=== PATIENT | female | born 1930 | race Caucasian/White ===

== ENCOUNTER → 2017-08-07 | Outpatient (REF) | payer MEDICARE ==
[2017-08-07 18:50] LABS: C REACTIVE PROTEIN QUANTITATIV 0.46 MG/DL (0.00-0.30)
== END ==
LOC: M LAB REF 17:32
DX: M19.90 Unspecified osteoarthritis, unspecified site (principal)
CPT/HCPCS: 86140

== ENCOUNTER 2018-12-23 11:16 | Emergency (ER) | payer MEDICARE ==
[~2018-12-23] VITALS: Ht 149.9 cm; Wt 63.4 kg
[~2018-12-23 11:16] MED LIST: AMLO5TAB6 PO; ASPI81TA85 PO; ATEN25TA PO; B12-1CHW PO; HYDR-2541 PO; HYDR-643 PO; LANTINJ4 SC; LESC80TA PO; LORA0.5T11 PO; NITR4TASL SL; PLAV1TAB2 PO; RAMI1CAP26 PO; SERT-141 PO; VITA-182 PO
[2018-12-23] MEDS ORDERED: FLUV80TA PO (11:33)
[2018-12-23] MEDS ORDERED: amLODIPine 5 MG TAB PO ONE (12:00)
[2018-12-23 12:45] LABS: BASO % 0.3 % (0.0-1.0); EOS # 0.1 10^3/uL (0.0-0.5); EOS % 0.9 % (0.0-3.0); HEMATOCRIT 41.9 % (36.0-47.0); HEMOGLOBIN 13.7 g/dl (12.0-15.5); LYMPH # 2.3 10^3/uL (1.5-5.0); LYMPH % 29.5 % (24.0-44.0); MEAN CORPUSCULAR HEMOGLOBIN 28.2 pg (27.0-33.0); MEAN CORPUSCULAR HGB CONC 32.7 g/dl (32.0-36.5); MEAN CORPUSCULAR VOLUME 86.2 fl (80.0-96.0); MONO # 0.8 10^3/uL (0.0-0.8); MONO % 10.9 % (0.0-5.0); NEUTROPHILS # 4.5 10^3/uL (1.5-8.5); PLATELET COUNT, AUTOMATED 326 10^3/uL (150-450); RED BLOOD COUNT 4.86 10^6/uL (4.00-5.40); WHITE BLOOD COUNT 7.7 10^3/uL (4.0-10.0)
--- NOTE | 2018-12-23 12:55 | REP ---
Portable chest, 12:13 p.m., single AP view with the patient sitting: Comparison is 01/26/2014. The lung pinedo are clear. The cardiac size is normal. The tae, mediastinum, and skeletal structures are unremarkable. Impression: Negative portable chest. There is no interval change. Electronically Signed by Bandar Lock MD 12/23/2018 12:46 P
[2018-12-23 13:27] LABS: ALBUMIN 3.5 GM/DL (3.2-5.2); ALT/SGPT 24 U/L (12-78); BILIRUBIN,DIRECT 0.2 MG/DL (0.0-0.2); BILIRUBIN,TOTAL 0.8 MG/DL (0.2-1.0); BLOOD UREA NITROGEN 17 MG/DL (7-18); CALCIUM LEVEL 9.3 MG/DL (8.8-10.2); CARBON DIOXIDE LEVEL 27 MEQ/L (21-32); CHLORIDE LEVEL 104 MEQ/L (98-107); CK-MB VALUE MASS < 1.0 NG/ML (<3.6); CPK CREATINE PHOSPHOKINASE 48 U/L (26-192); CREATININE FOR GFR 0.94 MG/DL (0.55-1.30); GLOMERULAR FILTRATION RATE > 60.0 (>32); GLUCOSE, FASTING 84 MG/DL (70-100); LIPASE 101 U/L (73-393); MB/CK RELATIVE INDEX 2.08 (< OR =4); POTASSIUM SERUM 3.8 MEQ/L (3.5-5.1); SODIUM LEVEL 140 MEQ/L (136-145); TOTAL PROTEIN 6.7 GM/DL (6.4-8.2); TROPONIN I < 0.02 NG/ML (< 0.10)
--- NOTE | 2018-12-23 14:56 | REP ---
Right upper quadrant sonography: History: Epigastric pain. Findings: Scanning through right upper quadrant of the abdomen demonstrates multiple shadowing calculi in the dependent portion the gallbladder measuring up to 1.5 cm in greatest diameter. These are consistent with gallstones. Common bile duct is normal measuring 0.6 cm in greatest diameter. Heterogeneous liver parenchyma is seen but no focal liver lesion is seen. Limited views of the pancreas show no abnormality. There is no evidence of ascites or right renal abnormality. There is some cortical thinning. The right kidney measures 9.3 x 4.6 x 4.6 cm. Impression: Cholelithiasis. Increased somewhat heterogeneous echogenicity in the liver consistent with fatty infiltration. Normal CBD. Electronically Signed by Neftali Fitzgerald MD 12/23/2018 02:47 P
[2018-12-23] MEDS ORDERED: NORV5TAB PO (15:29)
[2018-12-23] MEDS ORDERED: PROT1TAB2 PO (15:29)
[2018-12-23 15:30] VITALS: BP 189/84
--- NOTE | 2018-12-23 20:17 | ECGEPIP ---
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
== END 2018-12-23 15:48 | disposition home or self-care (01) ==
LOC: M ED 11:16
DX: I10 Essential (primary) hypertension (principal); K21.9 Gastro-esophageal reflux disease without esophagitis; K44.9 Diaphragmatic hernia without obstruction or gangrene; K80.20 Calculus of gallbladder without cholecystitis without obstruction; E11.9 Type 2 diabetes mellitus without complications; E78.5 Hyperlipidemia, unspecified; Z95.5 Presence of coronary angioplasty implant and graft; Z79.899 Other long term (current) drug therapy; Z79.82 Long term (current) use of aspirin; Z79.4 Long term (current) use of insulin

== ENCOUNTER → 2019-02-12 | Outpatient (REF) | payer MEDICARE ==
[~2019-02-12] MED LIST changes: +FLUV80TA PO; +NORV5TAB PO; +PROT1TAB2 PO
== END ==
LOC: M LAB REF 12:48
PROVIDERS: ATTEND Registered Nurse
DX: N39.0 Urinary tract infection, site not specified (principal)

== ENCOUNTER → 2020-05-04 | Outpatient (REF) | payer MEDICARE ==
[~2020-05-04] MED LIST changes: +AMLO1TAB24 PO; -AMLO5TAB6 PO; -ASPI81TA85 PO; +ASPI81TA86 PO; +FLUV80TAB PO; -LESC80TA PO; -LORA0.5T11 PO; +LORA0.5T5 PO
== END ==
LOC: M LAB REF 16:04
PROVIDERS: ATTEND Internal Medicine
DX: N39.0 Urinary tract infection, site not specified (principal)

== ENCOUNTER → 2022-02-06 | Outpatient (CLI) | payer MEDICARE ==
[~2022-02-06] MED LIST changes: +CLOP75TA99 PO; -PLAV1TAB2 PO
== END ==
LOC: M RAD 11:14
PROVIDERS: ATTEND Nurse Practitioner Family
DX: I65.22 Occlusion and stenosis of left carotid artery (principal)